=== PATIENT | female | born 1940 | race Caucasian/White ===

== ENCOUNTER → 2024-03-04 07:59 | Outpatient (CLI) | payer OTHER, SELFPAY ==
[2024-03-04 09:00] LABS: Add Manual Diff / Slide Review NO; Basophils Absolute Auto 100 /uL (0-100); Basophils Percent Auto 1.1 % (0-2); Eosinophils Absolute Auto 200 /uL (0-450); Eosinophils Percent Auto 3.7 % (2-4); Hematocrit 36.9 % (36-46); Lymphocytes Absolute Auto 1200 /uL (1100-4500); Lymphocytes Percent Auto 23.1 % (25-40); Mean Corpuscular HGB Conc 32.5 % (30-36); Mean Corpuscular Hemoglobin 26.9 PG (26-34); Mean Corpuscular Volume 82.5 fL (80-100); Monocytes Absolute Auto 400 /uL (0-900); Monocytes Percent Auto 8.3 % (3-14); Neutrophils Absolute Auto 3300 /uL (1500-7000); Neutrophils Percent Auto 63.8 % (50-75); Platelet Count 330 X10^3/uL (150-400); Red Blood Cell Count 4.48 X10^6/uL (4.0-5.2); Red Cell Distribution Width 14.4 % (11.6-14.8); White Blood Cell Count 5.2 X10^3/uL (4.5-11.0)
[2024-03-04 09:05] LABS: Hemoglobin A1C% w Est Avg Glu 6.4 % (4.0-6.0)
[2024-03-04 09:28] LABS: Alanine Aminotransferase 12 IU/L (<35); Albumin 4.3 g/dL (3.5-5.0); Albumin Globulin Ratio 1.7 (1.0-2.8); Alkaline Phosphatase 66 U/L (38-126); Aspartate Aminotransferase 16 IU/L (14-36); BUN Creatinine Ratio 19.7 (6-22); Bilirubin Total 0.6 mg/dL (0.2-1.3); Blood Urea Nitrogen 15 mg/dL (7-17); Calcium 9.4 mg/dL (8.4-10.2); Carbon Dioxide 27 mmol/L (22-32); Chloride 106 mmol/L (98-107); Cholesterol 151 mg/dL (140-199); Estimated Glomerular Filt Rate > 60 mL/min (>60); Globulin 2.6 g/dL (1.7-4.1); Glucose 120 mg/dL (80-110); HDL Cholesterol 74 mg/dL (40-60); HEMOLYSIS < 15 (0-50); LDL Cholesterol Calculated 53 mg/dL (<100); Potassium 4.1 mmol/L (3.4-5.1); Sodium 139 mmol/L (137-145); Total Protein 6.9 g/dL (6.3-8.2); Triglycerides 119 mg/dL (35-150)
[2024-03-04 09:47] LABS: TSH w/ Reflex to FT4 2.17 uIU/mL (0.47-4.68)
== END ==
PROVIDERS: Family Medicine; Family Provider Family Medicine; PCP Family Medicine; Referring Provider Orthopaedic Surgery Foot and Ankle Surgery; Visit Provider Orthopaedic Surgery Foot and Ankle Surgery
DX: Z01.818 Encounter for other preprocedural examination (principal); R73.9 Hyperglycemia, unspecified; E78.5 Hyperlipidemia, unspecified; I48.0 Paroxysmal atrial fibrillation; Z01.812 Encounter for preprocedural laboratory examination; E03.9 Hypothyroidism, unspecified; F32.9 Major depressive disorder, single episode, unspecified; R73.03 Prediabetes
CPT/HCPCS: 36415; 80053; 80061; 83036; 84443; 85025; 93005; 93010

== ENCOUNTER 2024-03-31 07:17 | Day surgery (SDC) | payer OTHER, SELFPAY ==
[2024-03-23 12:50] VITALS: BMI 24.0
[2024-03-31] VITALS (16 sets, daily range): BP systolic 135–165; BP diastolic 58–77; PULSE 66–75; RESP 12–17; TEMP 36.3–36.9; O2SAT 94–97; BMI 24.0
--- NOTE | 2024-03-31 06:00 | DI.RAD.S_ITS ---
PROCEDURE: XR KNEE RT 1TO2V INDICATIONS: TKA TECHNIQUE: 2 view(s) of the knee acquired. COMPARISON: None. FINDINGS: Bones: Patient is status post knee joint arthroplasty. Hardware components are in expected positions. Visualized bony structures are intact. Soft tissues: Overlying postoperative changes are noted. IMPRESSION: Expected post-operative appearance of a knee arthroplasty. Dictated by: Dax Mcduffie M.D. on 03/31/2024 at 11:50 Approved by: Dax Mcduffie M.D. on 03/31/2024 at 11:50
[2024-03-31] MEDS: ACETAMINOPHEN 325 MG TABLET 975 MG PO (07:57)
[2024-03-31] MEDS: CELECOXIB 200 MG CAPSULE 400 MG PO (07:58)
[2024-03-31] MEDS: LACTATED RINGERS 1,000 ML 42 ML IV ×2 (07:58→09:47)
--- NOTE | 2024-03-31 08:29 | PM.PREOP ---
Pre-operative Note Interval Note History & Physical reviewed/Exam performed by Physician: Yes Changes to H&P: No
--- NOTE | 2024-03-31 08:53 | P.OP_ITS ---
Operative Date/Time/Diagnoses Date of procedure: 03/31/24 Time of procedure: 09:00 Pre-op diagnosis: Right knee arthritis M17.11 Post-op diagnosis: same Procedure & Clinicians Procedure: Right total knee replacement CPT code 59156 Robotic assistance surgery [id number] Computer navigation [id number] Same procedure as scheduled: Yes Indications: The patient has significant pain associated with osteoarthritis of the right knee. It is associated with morning stiffness. Pain interferes with daily normal function including ambulation standing and any activities that are weight-bearing. It interferes with sleep. There is crepitation with range of motion. There is marked joint line tenderness. X-rays show significant levels of osteoarthritis. Double attempted previous conservative treatment has been rendered. The patient has failed exercise program, medications and previous injections. Patient is indicated for total knee arthroplasty. The risks and benefits of the procedure have been discussed with the patient and given the opportunity to ask questions. The risks of surgery include but are not limited to infection, malunion, nonunion, persistence of pain, damage to nerves and blood vessels, posttraumatic arthritis, DVT, PE, cardiopulmonary complications and . The patient expressed a thorough understanding of the risks and benefits of surgery and has elected to proceed. Consent was signed. During the operation, the services of a physician assistant professor of german were medically indicated and necessary to provide the exposure of the operative site for the surgical procedure and to maintain the limb in a proper position to carry out the operation safely and efficiently. Without a qualified residential assistant being present this would extended the operative procedure and made the procedure technically more difficult to perform. Surgeon: Domenica Wei Environmental Associate: Alexis Al Anesthesia Type: Spinal, Peripheral nerve block and Local Operative Notes Findings: Varus knee arthritis, right knee Closure Type: primary Prosthetic devices, grafts, tissues, transplants, or devices: Desai and Nephew journey 2 bCS Femur cobalt chromium size 6 right Tibia right size 6 Patella 35 x 7.5 Poly 11 mm Estimated Blood Loss (mL): 100 Blood products transfused: none Tourniquet time (min): 84 Procedure in detail: Patient was seen in the preoperative area where the patient and site of surgery were identified in the operative knee was marked informed consent confirmed. This was the right knee. Patient received the appropriate preoperative antibiotics this was 2 g of Ancef. And other preoperative medications and was taken to the operating room placed on operating table in the supine position. Spinal anesthetic were administered. The operative extremity was then prepped and draped in the standard sterile fashion with a nonsterile tourniquet high on the thigh. Patient was placed on the green foam bolsters. A lateral post was placed at the level of the proximal thigh /trochanter area as a lateral post. Formal time-out procedure was performed confirming the patient's side and site of surgery and administration of appropriate preoperative antibiotics and implants were in the room accounted for. All were in agreement. Patient received a preoperative dose of tranexamic acid and then a 2nd dose at tourniquet release Patient was prepped and draped in the standard sterile fashion and the foot was placed into the leg walton. This was taken into high flexion and the incision was marked out over the anterior knee to the level of the medial tubercle tubercle. The Esmarch was then used for exsanguination and the tourniquet was inflated to 250 mmHg. Was made through the skin and subcutaneous tissue in high flexion this was then brought down into 30? of flexion for the medial parapatellar arthrotomy. A marker pen was used to ranulfo the arthrotomy site for later repair. Joint fluid was evacuated. The anterior osteophytes and soft tissues were removed. Routine medial release was initially made along the medial proximal tibia with Bovie. The patella was 1st cut using the saw sized and prepped and then subluxed throughout the case and protected. The leg was then taken into extension and the patella was everted and the patella was cut to accommodate the patellar button. This was sized to a 35 mm button for a 7.5 mm thickness to recreate the original dimensions of the patella. Poly was removed and the protector replaced and the patella was subluxed and the knee was taken back up into flexion and attention was returned to the femur. Then the rotational landmarks of Whitesides line and the trans epicondylar axis were marked on the femur with electrocautery. ACL and PCL were released. Then the Cori robotic pins were placed into the femur and tibia and the race set up. Landmarks were established and the robotic planning was commenced. Plan was developed and improved and adjusted as necessary to create a balanced knee. Initial alignment was indicated at 4? of varus. Correction was planned to 0? of varus. Balance cuts were planned for approximately 2 mm in flexion and extension. Once the plan was satisfactory, the bur was used to remove the distal femur. Then attention was turned to the tibia and the tibial cut was made in accordance with the robotic planning. This was checked for accuracy. And the leg alignment was checked with the standard extension block and extension achieving the plan 0 degree alignment. Then attention was returned to the femur and the 5 in 1 cutting block was applied complete the femur cuts. The trials were placed. And the femoral notch was cut a standard fashion using Reamer then slap hammer. The knee was trialed and the checked. A 10 and then an 11 mm poly trial were selected. There is slight but tolerable medial laxity. Range of motion was taken using the robotic guidance Knee was balanced in flexion extension was then 1-2 mm. An achieved alignment of 0?. Range of motion 0-135 degrees was obtained. The rotation femoral trial was marked Bovie on the bone and checked with a long jose eduardo. Tibia was sized to a size 6. The tibia was then finished with a drill and flange cut and then The trial implants were removed. Then in extension the posterior capsule was injected with a mixture of 40 mL of 0.25% Marcaine and 20 mL of Exparel care to avoid excessive injection posterior laterally. The remainder of this was saved for the capsule and subcutaneous tissue and placed during cement curing. The wound and bone was irrigated with pulsatile lavage. This was then dried with a sponge. The components were verified and opened and the cement was mixed. Cement was applied to the components and then to the bone then the tibia was cemented in place 1st followed by the femur then the patella. Excess cement was removed. With care looking around the back of the knee. Remainder of the injection was injected around the capsule. trial poly was placed back in the leg was placed into extension for the patellar cementing. After this was cured approximately 15 minutes later and the dilute Betadine solution was placed for at least 3 minutes in the wound this was then irrigated out and the final poly was placed. This was a 11 mm poly. The tourniquet was released hemostasis was achieved. Final 1g of tranexamic acid was given IV at the time of tourniquet release. The capsule was closed with 1. Ethibond suture. Followed by a running Quill stitch. Subcutaneous layer was closed with 3-0 Vicryl suture. Skin was closed with a running V lock suture Stratafix Monocryl type suture and Dermabond. An zachary dressing was placed . An Jitendra wrap was applied. Anesthetic was terminated the patient was woken from anesthesia and taken to recovery room in good condition. There no immediate complications from this procedure. The patient will be maintained on a standard total knee replacement protocol with weight-bearing as tolerated. Complications: none Post-operative Condition: stable Disposition: PACU Plan for aftercare: Standard total knee postoperative instructions. Weightbear as tolerated. Commence range of motion immediately. Zachary dressing. Patient will resume Eliquis on postoperative day 1. Follow up in Orthopedic Clinic as scheduled in 10-14 days.
--- NOTE | 2024-03-31 08:54 | SUR.PREOP ---
Time out 0838 Block start time 0839 . Monitoring initiated and maintained throughout procedure. Oxygen and medications given by anesthesiologist . Patient remained stable throughout procedure, no adverse reactions noted. Block end time 0844
[2024-03-31] MEDS: TRANEXAMIC ACID 1,000 MG VIAL 1000 MG INJ ×2 (09:00→10:44)
[2024-03-31] MEDS: CEFAZOLIN 2 GM/100 ML PREMIX 100 ML IV ×2 (09:05→16:49)
--- NOTE | 2024-03-31 09:20 | SUR.OPER ---
Supine on padded OR bed. Pillow under head, arms secured on padded armboards <90 degree abduction. Safety belt across torso. Non-operative leg secured with tape over blanket over lower leg. Operative leg secured in DeMayo positioner. Foam padded brace at thigh of operative leg.
[2024-03-31] MEDS: BUPIVACAINE 0.25% (PF) 60 ML, EPINEPHrine 0.3 MG INJ (09:28)
[2024-03-31] MEDS: BUPIVACAINE LIPOSOME 266 MG/20 ML VIAL INJ (10:15)
[2024-03-31] MEDS: OXYCODONE IR 5 MG TABLET PO ×2 (11:39→12:10)
[2024-03-31] MEDS: ONDANSETRON 4 MG/2 ML INJ IV (11:39)
[2024-03-31] MEDS: KETOROLAC 30 MG/ML VIAL 15 MG IV (11:49)
--- NOTE | 2024-03-31 13:10 | PT.IIE ---
Current Diagnoses Unilateral primary osteoarthritis, right knee (03/31/24) Surgery Performed Operation Date: 03/31/24 08:45 Actual Procedures p Total Knee Arthroplasty - Robot(Right) - Domenica Wei MD Surgical History (Last Updated 03/23/24 @ 13:18 by Heidi Ramos, RN) H/O cardiac radiofrequency ablation H/O: hysterectomy Hx of bilateral cataract extraction Hx of left mastectomy Hx of right mastectomy Hx of tonsillectomy Medical History (Last Updated 03/23/24 @ 13:58 by Heidi Ramos RN) Afib AV junctional bradycardia Breast cancer, left (~2011) Breast cancer, right Easy bruising HLD (hyperlipidemia) HTN (hypertension) Hypothyroid Osteoarthritis Pacemaker (11/07/22) PAF (paroxysmal atrial fibrillation) Physical Therapy Inpatient Evaluation/Re-Eval M1 PT/OT-IP Prior Functional Status Start: 03/31/24 15:59 Freq: NEEDED Status: Active Protocol: Document 03/31/24 13:10 AB (Rec: 03/31/24 16:25 AB [id number]) Medical Review Prior Functional Status Medical History Reviewed Yes Communication able to make needs known Mobility and Gait pt stated that she was independent with all mobilities and ambulation without AD; pt still able to drive prior to sx Social History Household Members none Living Arrangements House Number of Floors (Floors) One Floor Number of Stairs To Enter/Railing? pt lives in a senior housing community 2 steps L rail ascending to enter the house Home Environment Standard Height Toilet,Walk in Shower Home Equipment Straight Cane,Raised Toilet Seat w/Armrests,Grab Bars In Shower Additional Social History Comment pt's friend plans to stay with pt to assist her until Friday but may stay longer if needed pt has a standard walker M2 PT-IP Current Condition Start: 03/31/24 15:59 Freq: NEEDED Status: Active Protocol: Document 03/31/24 13:10 AB (Rec: 03/31/24 16:25 AB [id number]) Physical Therapy Current Condition Current Condition Evaluation Date 03/31/24 Treatment Diagnosis s/p R TKA; difficulty in walking Onset Date 03/31/24 M3 PT-IP Subjective Start: 03/31/24 15:59 Freq: NEEDED Status: Active Protocol: Document 03/31/24 13:10 AB (Rec: 03/31/24 16:25 AB [id number]) Subjective Physical Therapy Visit Type Type Initial Evaluation Visit Start Time 13:10 Visit Stop Time 14:33 Number of TELECOMMUNICATIONS SUPPORT Visits 0 Physical Therapy Visit Comments Patient Comments agreeable to do PT Therapy Pain Assessment Pain When Pain Assessed At Rest Pain Present Pain Present Pain Reported Location right knee Intensity 5 Scale Used Numeric (0 - 10) Pain Management Techniques Apply Cold,Distraction, Modification of Treatment,Re- positioning,Timing of Activity with Medications M4 PT-IP Mobility and Gait Start: 03/31/24 15:59 Freq: NEEDED Status: Active Protocol: Document 03/31/24 13:10 AB (Rec: 03/31/24 16:25 AB [id number]) PT-Bed Mobility Assessment Supine to Sit Supine to Sit Standby Assistance Sit to Supine Sit to Supine Standby Assistance PT-Transfer Assessment Sit to and From Stand Sit to and from Stand Contact Guard Assistance,1 Person Assistance,Use of Upper Extremities Equipment Transfer Assistive Device Gait Belt,Front Wheeled Walker Orthotic/Prosthetic Devices or Brace: No Transfers Transfer Destination Bed Comments Mobility Comments PACU pt referred for PT for possible d/c today. pt supine in bed and agreeable to do PT. pt's friend with pt. obtained PLOF and home set up from pt and friend. pt has a standard walker. pt stated that she did not have pre-op PT . informed pt regarding DME : FWW, shower chair. pt is set up for outpt PT. post-op folder provided and reviewed with pt. educated pt regarding HEP. BP in supine: 137/70. pt completed supine to sit SBA. able to sit on EOB SBA. BP in sittin/68. pt completed sit to stand CGA and ambulated using FWW ~ 20 ft CGA to min A and max cues for R quads activation. presents with (+) R knee slight buckling. pt sat on EOB. educated on LE stability in standing and walking. Caregiver training initiated and educated caregiver on how to use safety belt and how to assist pt. pt's friend was able to put safety belt on after a few cues/instructions. friend was able to assist pt with sit to stand on EOB and ambulated pt ~ 20 to other side of the bed using FWW CGA and. caregiver was able to cue pt. pt sat on EOB. educated pt regarding stair climbing using L rail ascending + SPC. PT assisted pt with stair climbing and pt completed 1 step using L rail ascending + SPC requiring mod A and max cues. pt afterwards stated that she if feeling really tired and cannot do anymore activities. pt sat on EOB. BP checked: 127/70. pt scooted towards HOB and completed sit to supine SBA. pt's friend stated that she is worried about pt going home at this time. PT informed pt that she needed assistance with stair climbing and caregiver training was not conducted for stair climbing since pt was unable to tolerate further activities. pt also has has a drop in BP from 158/68 to 127/70. Nurse informed. Talked with pt and friend regarding caregiver training for tomorrow and pt's friend will come in at 9 am for training. Pt also want FWW dispensed to her from the hospital. informed PACU nurse to get doctor's order for FWW. call light placed with pt and table as well. BP at end of PT session: 146/70. Left pt in PACU with pt's friend. Gait Assessment Gait Gait Assistance Required: Contact Guard Assist,Minimum Assistance Distance (Feet) 20 Able to Maintain Weight Bearing Status Yes During Gait Assistive Devices Assistive Device Gait Belt,Front Wheeled Walker Orthotic/Prosthetic Devices or Brace: No Gait Deviations General Gait Pattern Antalgic,Decreased Stride Length,Decreased Feet Clearance,Step-to Gait Factors Limiting Gait Function Factors Limiting Gait Function Decreased Activity Tolerance, Decreased Strength,Difficulty Following Directions,Limited Range of Motion,Pain,Poor Balance,Poor Safety Awareness Stair Climbing Assessment Evaluation Level of Assist On Stairs Moderate Assistance,1 Person Assistance Devices Stair Climbing Assistive Devices Straight Cane,Left Railing Technique/Endurance Stair Climbing Direction Ascend and Descend Stair Climbing Technique Step to Step Number of Steps Climbed 1 Query Text: Stair Climbing Set # Repetitions (reps) 1 PT-Balance Assessment Sitting Balance and Reactions Static Sitting Balance Ability Good Dynamic Sitting Balance Ability Good Standing Balance and Reactions Static Standing Balance Ability Fair Dynamic Standing Balance Ability Fair Device Used FWW M5 PT-IP Objective Assessments Start: 03/31/24 15:59 Freq: NEEDED Status: Active Protocol: Document 03/31/24 13:10 AB (Rec: 03/31/24 16:25 AB [id number]) Orientation Orientation/Cognition Level of Alertness Alert Orientation Name,Place,Situation Language Function Ability Hard of Hearing Safety Awareness Decreased Safety Awareness Memory Description No Deficits Noted Gross Range of Motion Lower Extremity ROM Impairments R knee flexion: ~ 70 deg R knee extension: ~ 10 deg less to 0 Strength Lower Extremity Strength Assessment Right Impaired Hip 4-/5 Knee 3+/5 Coordination Assessment Gross Coordination Gross Coordination WNL M6 PT-IP Treatment Start: 03/31/24 15:59 Freq: NEEDED Status: Active Protocol: Document 03/31/24 13:10 AB (Rec: 03/31/24 16:25 AB [id number]) Physical Therapy Treatment Exercises Exercises Heel Slides Education Education Provided Precautions,Weight Bearing Status,Post-Op Packet,Safety M7 PT-IP Assessment and Plan Start: 03/31/24 15:59 Freq: NEEDED Status: Active Protocol: Document 03/31/24 13:10 AB (Rec: 03/31/24 16:25 AB [id number]) PT Summary Assessment and Plan Potential Rehabilitation Potential Fair Status of Condition at Evaluation Evolving Summary Impairments Pain,ROM,Strength,Balance, Coordination,Sensation,Tone, Cognition,Bed Mobility, Transfers,Gait,Activity Tolerance Progress Towards Goals Slow Progress due to Activity Tolerance,Slow Progress - Other Assessment Summary pt is an 83 y/o F s/p R TKA POD 0. pt is WBAT on RLE. Pt is still on PACU floor and plans to go home today. pt requiring CGA to min A with mobility and caregiver training was initiated. caregiver training not completed for stair climbing due to pt's decrease activity tolerance with c/o fatigue and also has a drop in BP from 158/68 to 127/70. pt unable to do further activities and now plans to stay in the hospital for tonight. caregiver training set up for tomorrow at 9am. Pt also requested for a FWW to be dispensed to her. informed PACU nurse to obtain doctor's order for FWW and PT will dispense to pt on d/c day. Goals Bed Mobility Goal Independent Transfer Goal Independent,Front Wheeled Walker Gait Goal Independent,Front Wheel Walker Gait Distance 200 Other Goals improve transfers and ambulation using LRAD ~ 300 ft mod I up/down 2 steps L rail ascending + SPC CGA Days to Meet Goals 5 Frequency of Treatment Frequency Of Treatment Twice a Day Treatment Plan Physical Therapy Treatment Plan Bed Mobility Training,Transfer Training,Gait Training, Therapeutic Exercise,Balance Retraining,Post Op Education, Discharge Planning,Hot or Cold Pack,Neuromuscular Re-ed, Coordination Retraining,Manual Therapy Other Recommendations and Next Treatment Caregiver training 04/01/24 @ [facility] 9 am Weight Bearing Status Weight Bearing Status Weight Bear as Tolerated Allowed Weight Bearing Amount (enter % RLE WBAT or #) (%) Recommendations To Nursing Amount of Assist Needed 1 Person Assist Discharge Recommendations PT Discharge Recommendations Home with Assistance, Outpatient PT Equipment Needed for Home Before FWW Discharge Transportation Needs at Discharge Private Vehicle
[2024-03-31] MEDS: LACTATED RINGERS 1,000 ML 100 ML IV (16:49)
[2024-03-31] MEDS: ACETAMINOPHEN 325 MG TABLET 650 MG PO ×2 (16:50→20:48)
[2024-03-31] MEDS: SENNOSIDES 8.6 MG TABLET 17.2 MG PO (20:47)
[2024-03-31] MEDS: METOPROLOL ER 25 MG TABLET PO (20:47)
[2024-03-31] MEDS: ATORVASTATIN 20 MG TABLET 10 MG PO (20:49)
[2024-04-01] MEDS: CEFAZOLIN 2 GM/100 ML PREMIX 100 ML IV (01:52)
[2024-04-01] MEDS: ACETAMINOPHEN 325 MG TABLET 650 MG PO (04:46)
[2024-04-01 05:09] VITALS: BP 144/56; PULSE 66; RESP 16; TEMP 36.2; O2SAT 95
[2024-04-01 06:15] LABS: Hematocrit 33.5 % (36-46); Hemoglobin 10.9 g/dL (12.0-16.0)
[2024-04-01] MEDS: LEVOTHYROXINE 75 MCG TABLET PO (06:44)
--- NOTE | 2024-04-01 06:49 | P.DS_ITS ---
History of Present Illness History of Present Illness Date Patient Seen: 04/01/24 Time Patient Seen: 06:49 Chief complaint: Right TKA *OPB* Narrative: Operative Date/Time/Diagnoses Date of procedure: 03/31/24 Time of procedure: 09:00 Pre-op diagnosis: Right knee arthritis M17.11 Post-op diagnosis: same Procedure & Clinicians Procedure: Right total knee replacement CPT code 25485 Robotic assistance surgery [id number] Computer navigation [id number] Same procedure as scheduled: Yes Indications: The patient has significant pain associated with osteoarthritis of the right knee. It is associated with morning stiffness. Pain interferes with daily normal function including ambulation standing and any activities that are weight-bearing. It interferes with sleep. There is crepitation with range of motion. There is marked joint line tenderness. X-rays show significant levels of osteoarthritis. Double attempted previous conservative treatment has been rendered. The patient has failed exercise program, medications and previous injections. Patient is indicated for total knee arthroplasty. The risks and benefits of the procedure have been discussed with the patient and given the opportunity to ask questions. The risks of surgery include but are not limited to infection, malunion, nonunion, persistence of pain, damage to nerves and blood vessels, posttraumatic arthritis, DVT, PE, cardiopulmonary complications and . The patient expressed a thorough understanding of the risks and benefits of surgery and has elected to proceed. Consent was signed. During the operation, the services of a physician surgical scrub technologist were medically indicated and necessary to provide the exposure of the operative site for the surgical procedure and to maintain the limb in a proper position to carry out the operation safely and efficiently. Without a qualified executive chef assistant being present this would extended the operative procedure and made the procedure technically more difficult to perform. Surgeon: Domenica Wei Dermatology Nurse: Alexis Al Anesthesia Type: Spinal, Peripheral nerve block and Local Operative Notes Findings: Varus knee arthritis, right knee Closure Type: primary Prosthetic devices, grafts, tissues, transplants, or devices: Desai and Nephew journey 2 bCS Femur cobalt chromium size 6 right Tibia right size 6 Patella 35 x 7.5 Poly 11 mm Estimated Blood Loss (mL): 100 Blood products transfused: none Tourniquet time (min): 84 Discharge Providers Provider Discharge Date: 04/01/24 Primary care physician: Garry Huerta MD Consults: 03/31/24 08:45 Consult to Physical Therapy Evaluate & Treat Comment: postop TKA same day surgery Physician Instructions: Evaluate and Treat 03/31/24 16:00 Consult to Discharge Planning Routine Comment: Consult to Occupational Therapy Evaluate & Treat Comment: Physician Instructions: Evaluate and treat Consult to Physical Therapy Evaluate & Treat Comment: Physician Instructions: postop TKA protocol Discharge provider: Niru Rendon PA-C Summary Hospital Course Discharge Diagnosis: Right knee arthritis, s/p right total knee arthroplasty Hospital Course: Ms Lance'mati hospital course was unremarkable. On the morning of POD# 1, she was feeling well and wanted to go home. She was eating and voiding without difficulty and her pain was well-controlled on oral medication. She was evaluated by PT and they felt she was safe for discharge with family. Exam Vital Signs (past 8 hours): - 03/31/24 23:25 04/01/24 05:09 Temperature 97.6 F 97.2 F L Pulse Rate 72 66 Respiratory Rate 16 16 Blood Pressure 144/69 H 144/56 H Pulse Oximetry 94 95 Oxygen Flow Rate 0 0 Oxygen Delivery Method Room Air Oxygen Flow Rate 0 Narrative Exam Narrative: 4/5 strength in hip flexors, quadriceps, hamstrings; 5/5 DF, PF, EHL on right. Sensation to light touch intact throughout RLE; calf soft and compressible. JITENDRA over YUNG CDI; YUNG functioning. Objective Labs 04/01/24 06:03 Labs: Laboratory Results - last 24 hr 04/01/24 06:03 Hgb 10.9 L Hct 33.5 L PFSH Medical History (Updated 03/23/24 @ 13:58 by Heidi Ramos RN) AV junctional bradycardia PAF (paroxysmal atrial fibrillation) Easy bruising Osteoarthritis Breast cancer, left (~2011) Breast cancer, right Afib HLD (hyperlipidemia) HTN (hypertension) Hypothyroid Pacemaker (11/07/22) Surgical History (Updated 03/23/24 @ 13:18 by Heidi Ramos RN) Hx of tonsillectomy Hx of right mastectomy Hx of left mastectomy H/O: hysterectomy H/O cardiac radiofrequency ablation Hx of bilateral cataract extraction Social History household members: none Smoking Status: Never smoker alcohol intake: current Discharge Assessment & Plan Assessment and Plan Assessment: Right knee arthritis, s/p right total knee arthroplasty Plan of Treatment: Discharge home, multimodal pain control, outpt PT, Eliquis as per preop for VTE prophylaxis, f/u in office in 2 weeks as scheduled. Discharge Plan Discharge Plan Patient Disposition: Home Nursing Discharge Comment: You received Toradol (like Ibuprofen) at 1145, next dose of Ibuprofen at 545pm. You received Tylenol at 0800, next dose at 2 pm. You received Oxycodone at 1140, next dose at 240pm. Please take stool softeners while on narcotic pain medications. Discharge orders & Medications Discharge Orders: Discharge (Order); Ordered 04/01/24 Ordered By: Niru Rendon Prescriptions: New oxycodone 5 mg tablet 5 mg PO Q4H PRN (Reason: pain) Qty: 40 0RF Rx Instructions: Postop exempt Continued levothyroxine [Synthroid] 75 MCG tablet 75 mcg PO DAILY Qty: 0 simvastatin 20 MG tablet 20 mg PO BEDTIME Qty: 0 calcium carbonate-vitamin D3 [Calcium 600 + D(3)] 600 mg-10 mcg (400 unit) Tablet 1 tab PO DAILY Qty: 0 amlodipine 5 mg Tablet 5 mg PO DAILY ibuprofen 200 mg Tablet 400 mg PO DAILY PRN (Reason: Pain) metoprolol succinate 25 mg Tablet Extended Release 24 Hr 25 mg PO BID losartan 100 mg Tablet 100 mg PO DAILY naproxen sodium [Aleve] 220 mg Capsule 440 mg PO DAILY PRN (Reason: Pain) apixaban 5 mg Tablet 5 mg PO BID magnesium oxide 400 mg magnesium Tablet 400 mg PO DAILY Follow up/Referrals: Mirza Huerta MD [Primary Care Provider] - Domenica Wei MD [Physician] - 04/14/24 10:40 am (Follow up w/ Carlos Jerez PA-C, at [facility] office in [place].) Diet/Activity/Treatments Diet: Diet as Tolerated Other treatments: Dressing/Wound care: -Remove the Jitendra wrap 48 hours after surgery. -Keep yung dressing in place until postoperative follow-up office visit. -you may see some drainage on the bandage, this is ok. If it is leaking or saturated, then the dressing can be changed to clean gauze or a clean surgical dressing from a pharmacy or reinforced with additional gauze and paper tape or dressings over the top. Otherwise, just keep dressing in place until follow up. The battery pack for the dressing work for 7 days. After which time it will stop and you can cut the hose off but keep the bandage in place like a regular bandage. -Okay to shower. Keep wound out of direct water stream. No soaking or submerging until all the scabs fall off (approximately 6 weeks). -Please call the office if dressing becomes significantly wet, soiled, or saturated. Activities: -Weight-bearing as tolerated. Use front wheeled walker, and progress to cane when safe. -Continue with home exercises as directed by your physical therapist. -Elevate ?toes above the nose if you have significant swelling in your lower leg. (A wedge pillow is easiest.) -Ice your incision as needed for pain/inflammation/swelling. Protect your skin with a folded pillowcase. Follow-up: -Follow-up with your surgeon or PA in the office in 10-14 days after surgery. -Follow-up with your surgeon 6 weeks postoperatively. Call the office if you have chest pain, shortness of breath, significant swelling that will not resolve with elevating, fever over 101?, significantly worsening pain. [facility]: [phone] You have been discharged with medications. These have already been sent to your pharmacy. Pain include pain medications: Oxycodone take 5 mg orally every 4 hours as needed for pain. If your pain is more severe you may take up to 2 or a maximum 3 pills (15 mg) every 4 hours for pain. Take the smallest dose necessary. Narcotic medication can make you feel constipated. You can get kjtm-fgc-jyqxuit stool softener such as docusate sodium-Colace at a pharmacy to help with this. You also have prescriptions for ibuprofen 800 mg take this 3 times a day for least the 1st 10 days after surgery to help with pain control. And acetaminophen (Tylenol) take 500-1000 mg 3 times a day for pain control. You also have a prescription for Zofran (ondansetron) this is a strong anti nausea medication that can be taken up to every 8 hours as needed for nausea You will restart your Eliquis at your regular dose on the morning after surgery. Skin/Wound/Dressing Care Report to your healthcare provider any signs of infection, such as:: chills, fever, night sweats, increased pain, unusual drainage and unusual redness Visit Report/Discharge Packet Instructions: DI for Knee Replacement Stand Alone Forms: Patient Portal/API, Surgery Discharge Discharge Data Primary Care Provider: Mirza Huerta Attending Provider: Domenica Wei VTE Deep Vein Thrombosis/Pulmonary Embolism Present on Admission: No
[2024-04-01] MEDS: AMLODIPINE 5 MG TABLET PO (08:25)
[2024-04-01] MEDS: OXYCODONE IR 5 MG TABLET PO (08:25)
[2024-04-01 08:28] VITALS: BP 144/51; PULSE 67
[2024-04-01] MEDS: LOSARTAN 50 MG TABLET 100 MG PO (08:28)
[2024-04-01] MEDS: CALCIUM CARBONATE 500 MG TAB PO (08:28)
[2024-04-01] MEDS: METOPROLOL ER 25 MG TABLET PO (08:28)
[2024-04-01] MEDS: CHOLECALCIFEROL (VITAMIN D3) 400 UNIT TABLET PO (08:28)
[2024-04-01] MEDS: APIXABAN 5 MG TABLET PO (08:28)
[2024-04-01] MEDS: MAGNESIUM OXIDE 400 MG TABLET PO (08:29)
[2024-04-01 09:00] VITALS: BP 144/51; PULSE 66; RESP 16; TEMP 36.1; O2SAT 94
--- NOTE | 2024-04-01 09:00 | PT.IPTN ---
Current Diagnoses Unilateral primary osteoarthritis, right knee (03/31/24) Surgery Performed Operation Date: 03/31/24 08:45 Actual Procedures p Total Knee Arthroplasty - Robot(Right) - Domenica Wei MD Physical Therapy Treatment Note M2 PT-IP Current Condition Start: 03/31/24 15:59 Freq: NEEDED Status: Active Protocol: Document 03/31/24 13:10 AB (Rec: 03/31/24 16:25 AB [id number]) Physical Therapy Current Condition Current Condition Evaluation Date 03/31/24 Treatment Diagnosis s/p R TKA; difficulty in walking Onset Date 03/31/24 M3 PT-IP Subjective Start: 03/31/24 15:59 Freq: NEEDED Status: Active Protocol: Document 04/01/24 09:28 TS (Rec: 04/01/24 09:54 TS [id number]) Subjective Physical Therapy Visit Type Type Treatment Note Visit Start Time 09:00 Visit Stop Time 09:27 Number of [employer] Visits 1 Physical Therapy Visit Comments Patient Comments Pt found resting in bed, friend in room, pt reports pain is 3/10, pt is agreeable to PT. Therapy Pain Assessment Pain When Pain Assessed At Rest Pain Present Pain Present Pain Reported M4 PT-IP Mobility and Gait Start: 03/31/24 15:59 Freq: NEEDED Status: Active Protocol: Document 04/01/24 09:28 TS (Rec: 04/01/24 09:54 TS [id number]) PT-Bed Mobility Assessment Supine to Sit Supine to Sit Standby Assistance Scooting Scooting to Edge of Bed Standby Assistance PT-Transfer Assessment Sit to and From Stand Sit to and from Stand Standby Assistance Equipment Transfer Assistive Device Gait Belt,Front Wheeled Walker Orthotic/Prosthetic Devices or Brace: No Comments Mobility Comments Supine to sit SBA with HOB elevated, pt uses BUE support to assist RLE to EOB. Caregiver donned gait belt prior to STS. STS from bed SBA with FWW. She ambulated ~100' SBA with FWW and step to gait. She performed stairs CGA from caregiver x3 with with single rail and use of SPC. Pt ambulated back to room, was left in chair. Pt was educated on frequency and intensity of post-ex. RN was notified of pt's desire to leave [facility]. Gait Assessment Gait Gait Assistance Required: Standby Assistance Distance (Feet) 100 Able to Maintain Weight Bearing Status Yes During Gait Assistive Devices Assistive Device Gait Belt,Front Wheeled Walker Orthotic/Prosthetic Devices or Brace: No Gait Deviations General Gait Pattern Antalgic,Decreased Stride Length,Decreased Feet Clearance,Step-to Gait Factors Limiting Gait Function Factors Limiting Gait Function Decreased Activity Tolerance, Decreased Strength,Difficulty Following Directions,Limited Range of Motion,Pain,Poor Balance,Poor Safety Awareness Comments Gait Comments See mobility comments Stair Climbing Assessment Evaluation Level of Assist On Stairs Contact Guard Assistance,1 Person Assistance Devices Stair Climbing Assistive Devices Straight Cane,Left Railing Technique/Endurance Stair Climbing Direction Ascend and Descend Stair Climbing Technique Step to Step Number of Steps Climbed 1 Stair Climbing Set # Repetitions (reps) 1 PT-Balance Assessment Sitting Balance and Reactions Static Sitting Balance Ability Good Dynamic Sitting Balance Ability Good Standing Balance and Reactions Static Standing Balance Ability Fair Dynamic Standing Balance Ability Fair Device Used FWW M5 PT-IP Objective Assessments Start: 03/31/24 15:59 Freq: NEEDED Status: Active Protocol: Document 03/31/24 13:10 AB (Rec: 03/31/24 16:25 AB [id number]) Orientation Orientation/Cognition Level of Alertness Alert Orientation Name,Place,Situation Language Function Ability Hard of Hearing Safety Awareness Decreased Safety Awareness Memory Description No Deficits Noted Gross Range of Motion Lower Extremity ROM Impairments R knee flexion: ~ 70 deg R knee extension: ~ 10 deg less to 0 Strength Lower Extremity Strength Assessment Right Impaired Hip 4-/5 Knee 3+/5 Coordination Assessment Gross Coordination Gross Coordination WNL M6 PT-IP Treatment Start: 03/31/24 15:59 Freq: NEEDED Status: Active Protocol: Document 04/01/24 09:28 TS (Rec: 04/01/24 09:54 TS [id number]) Physical Therapy Treatment Education Education Provided Precautions,Weight Bearing Status,Post-Op Packet,Safety M7 PT-IP Assessment and Plan Start: 03/31/24 15:59 Freq: NEEDED Status: Active Protocol: Document 04/01/24 09:28 TS (Rec: 04/01/24 09:54 TS [id number]) PT Summary Assessment and Plan Potential Rehabilitation Potential Good Summary Impairments Pain,ROM,Strength,Balance, Coordination,Sensation,Tone, Cognition,Bed Mobility, Transfers,Gait,Activity Tolerance Progress Towards Goals Progressing Toward Goals Assessment Summary Elly is making good progress with her mobility. She is SBA for all bed mobility. She improved her gait to ~100 SBA with FWW. She performed stairs x3 with single rail and use of SPC CGA . Caregiver was educated on bed mobility, gait belt, gait and stair training. PT is recommending home with assist and outpatient PT. Goals Bed Mobility Goal Independent Transfer Goal Independent,Front Wheeled Walker Gait Goal Independent,Front Wheel Walker Gait Distance 200 Other Goals improve transfers and ambulation using LRAD ~ 300 ft mod I up/down 2 steps L rail ascending + SPC CGA Days to Meet Goals 5 Frequency of Treatment Frequency Of Treatment Twice a Day Treatment Plan Physical Therapy Treatment Plan Bed Mobility Training,Transfer Training,Gait Training, Therapeutic Exercise,Balance Retraining,Post Op Education, Discharge Planning,Hot or Cold Pack,Neuromuscular Re-ed, Coordination Retraining,Manual Therapy Weight Bearing Status Weight Bearing Status Weight Bear as Tolerated Allowed Weight Bearing Amount (enter % RLE WBAT or #) (%) Recommendations To Nursing Amount of Assist Needed 1 Person Assist Discharge Recommendations PT Discharge Recommendations Home with Assistance, Outpatient PT Equipment Needed for Home Before FWW Discharge Transportation Needs at Discharge Private Vehicle
--- NOTE | 2024-04-01 09:21 | CM.DANOTE ---
Initial DCP Assessment Visit Note Reviewed EMR and team rounds for pt's medical status and updates. Went to meet with pt f/f, however she was busy working with PT. Pt resides independently in her own home [place] in [place]. She has a plan for her friend to stay with her for the next 3-days post-discharge, however the friend states that she can stay longer if needed for care assistance. Her friend will also drive her home today after working with PT. Payor: [facility] Adv Attending: Dr. Wei Pt is a 83 year-old F post-op day 1 from a R-total knee arthroplasty surgery. She has a hx of worsening knee pain that interferes with sleep, as well as limits her ability to perform ADL's, despite having tried conservative efforts such as exercise, NSAIDS. She still drives, had not needed any AD for mobility until now. PT was able to get her a FWW for pt's d/c home later this morning. Pt has recovered well postoperatively, was able to work with PT yesterday, had a slight drop in blood pressure when initially getting up to walk, however it did improve shortly after stopping to rest. No d/c needs have been identified at this time. This DCP will continue to monitor for any further evolving needs/assistance. Discharge Planning/Care Management CM Discharge Assessment Start: 04/01/24 09:17 Freq: Status: Active Protocol: Document 04/01/24 09:17 DPL (Rec: 04/01/24 09:20 DPL [id number]) Discharge Planning Assessment Assigned Pre Press Manager ALEXANDRU Almanza Advance Directives? No History Provided By Medical Record Expected Length of Stay 1 Prior Living Arrangements House Household Members none Type of transporation used prior to Drives own vehicle admit Independent with ADL's Yes Is patient alert and oriented? Yes Comment N/A Caregiver for Another No Comment No assistive device was needed prior to surgery. She does have a FWW now that she will take home with her. Patient/Family Preference OP PT Therapy Barriers to Discharge No Discharge Plan Home Community Services Physical Therapy Transportation Arrangement Friend Referrals Initiated None needed Review Status In Process Please Provide Date Initial DC 04/01/24 Assessment Was Performed Pre-Anesthesia Assessment Start: 03/23/24 12:50 Freq: Status: Active Protocol: Document 03/23/24 12:50 CAB (Rec: 03/23/24 13:58 CAB [id number]) Pre-Anesthesia Assessment Patient Information Reviewed Via Phone Assessment Assessment Completed With Patient Diagnostic Results BMP/CMP,CBC,EKG Comment Labs/EKG @ [facility] 03/04/24 Primary Care Provider Bhupinder Kwon Seen Specialist in Last 12 Months Yes Specialist Seen Drilling Fluids Specialist,Orthopedist Primary Language Azeri Jitney Driver Required No Height 172.72 cm Weight 71.668 kg Body Mass Index (BMI) 24.0 Hearing Ability Normal Visual Assist None Dentition Type Full- Upper & Lower Barriers to Learning None Hx Anesthesia Reactions No Hx Family Anesthesia Reaction No Hx Malignant Hyperthermia No Hx Blood Transfusions No Anesthesia Review Requested No Directory Clerk No alcohol intake current alcohol intake frequency a few times a week Smoking Status Never smoker Substance Use Type does not use Pain Present Pain Reported Musculoskeletal Symptoms Abnormal Gait,Difficulty Walking,Joint Pain History of Falling (Recent or History of No ) Patient is completely paralyzed or No completely immobile Mental Status Oriented to own ability Is patient on oxygen? No Does patient have DIAZ/SOB No Hx Sleep Apnea No Currently Taking a Beta Lance Yes: Metoprolol Can You Climb a Flight of Stairs Without Yes SOB Hx Chest Pain No Hx SOB No Hx Syncope or Dizziness No Anti-Coagulant Therapy Yes: Eliquis - hold 3 days prior per Cardiology Has a Drilling Fluids Specialist Yes: Last visit 10/31/[address] Delgadillo @ [facility] Hx Pacemaker/ICD Yes: Pacer form scanned and in surgery folder Pacemaker Rep Required? No Cardiac Clearance Received Yes Comment Cardiac records scanned and in surgery folder Diet Type At Home Regular Dysphagia No Gastrointestinal Symptoms None Chronic UTI No Urinary Catheter Present No Hx Urinary Self Catheterization No Diabetes No HgbA1C 6.4 Date 03/04/24 Patient No Lactating No Hx Drug Resistant Organism No Presence of External or Internal Medical Yes: Pacemaker, bilat eye IOLs Devices , right breast implant Received a COVID vaccine? Yes Received all doses? Yes Marital Status / Lives With none Current Living Arrangements Apartment/Condo Number of Floors (Floors) One Floor Support System Friend(s) Does the Patient Have Assistance After Yes: Friend will stay w/pt 03/30 Surgery -04/03/24 Patient Discharge Plan Description Return Home Comment Pt advised same day surgery per surgeon Feels Safe in Current Environment Yes Been Physically Hurt or Threatened By a No Person in Current Environment Do you have thoughts of harming yourself None or others? Are you currently considering suicide? No Do you have a plan to hurt yourself or No Plan others? Do You Have Any Spiritual Beliefs That No May Affect Your HC Choices? Do You Have Any Cultural Practices That No May Affect Your HC Choices? Who Can We Speak to About Patient's Care Family, friends Identifying Code for Release of Patient Declines to issue Information Health Care Proxy/Next of Kin Magalie Saravia (good friend) Health Care Proxy Emergency Contact Name Magalie Saravia (good friend) Emergency Contact Advance Directives? No Power of Ratings Analyst No PAC Instructions Do not shave/clip surgical site,Durable medical equipment ,Medications to take/avoid, Nasal antibiotic,No ETOH/ petroleum product on skin DOS, NPO,Pre-surgical wash,Sensory aids,Sturdy shoes/comfortable clothes,Do not bring valuables and remove jewelry
--- NOTE | 2024-04-01 09:55 | OT.IP.EVAL ---
Current Diagnoses Unilateral primary osteoarthritis, right knee (03/31/24) Surgery Performed Operation Date: 03/31/24 08:45 Actual Procedures p Total Knee Arthroplasty - Robot(Right) - Domenica Wei MD Past Medical History (Last Updated 03/23/24 @ 13:58 by Heidi Ramos, RN) Afib AV junctional bradycardia Breast cancer, left (~2011) Breast cancer, right Easy bruising HLD (hyperlipidemia) HTN (hypertension) Hypothyroid Osteoarthritis Pacemaker (11/07/22) PAF (paroxysmal atrial fibrillation) Surgical History (Last Updated 03/23/24 @ 13:18 by Heidi Ramos RN) H/O cardiac radiofrequency ablation H/O: hysterectomy Hx of bilateral cataract extraction Hx of left mastectomy Hx of right mastectomy Hx of tonsillectomy Occupational Therapy Inpatient Evaluation/Re-Eval M1 PT/OT-IP Prior Functional Status Start: 03/31/24 15:59 Freq: NEEDED Status: Active Protocol: Document 04/01/24 09:56 [facility] (Rec: 04/01/24 10:08 [facility] [id number]) Medical Review Prior Functional Status Medical History Reviewed Yes Communication able to make needs known Mobility and Gait pt stated that she was independent with all mobilities and ambulation without AD; pt still able to drive prior to sx Activities of Daily Living and IADL's Pt able to do ADL and IADL but had pain. Social History Household Members none Living Arrangements House Number of Floors (Floors) One Floor Number of Stairs To Enter/Railing? pt lives in a senior housing community 2 steps L rail ascending to enter the house Home Environment Standard Height Toilet,Walk in Shower Home Equipment Straight Cane,Raised Toilet Seat w/Armrests,Shower Seat with Backrest,Grab Bars In Shower Additional Social History Comment pt's friend plans to stay with pt to assist her until Friday but may stay longer if needed pt has a standard walker M2 OT-IP Current Condition Start: 04/01/24 09:56 Freq: Status: Active Protocol: Document 04/01/24 09:56 [facility] (Rec: 04/01/24 10:08 [facility] [id number]) Occupational Therapy Current Condition Current Condition Evaluation Date 04/01/24 Treatment Diagnosis S/P R TKA Diagnosis Onset Date 03/31/24 M3 OT- IP Subjective and Pain Start: 04/01/24 09:56 Freq: Status: Active Protocol: Document 04/01/24 09:56 [facility] (Rec: 04/01/24 10:08 [facility] [id number]) OT- Subjective Occupational Therapy Visit Type Type Initial Evaluation Visit Start Time 09:25 Visit Stop Time 09:55 Occupational Therapy Visit Comments Patient Comments Pt agreed to get dressed and able to issue the FWW to the pt. Patient/Caregiver Goals TO go home. OT Pain Assessment Pain When Pain Assessed At Rest Pain Present Pain Present Pain Reported Location right knee Intensity 3 Scale Used Numeric (0 - 10) M4 OT- IP ADL's Start: 04/01/24 09:56 Freq: Status: Active Protocol: Document 04/01/24 09:56 [facility] (Rec: 04/01/24 10:08 [facility] [id number]) OT CPR-Jrlb-Jihteoi General Evaluation Self-Feeding Ability Independent OT ADL-Grooming Comments OT Grooming Comments NOt performed. OT ADL-Oral Care Comments Oral Care Comments Not performed. OT ADL-Dressing General Eval Upper Body Dressing Ability Independent Lower Body Dressing Ability Minimal Assistance Comments OT Dressing Comments LORI to help thread slip on socks through her pants. Educated to sit for shoes/ socks needs. When standing to hold onto surfaces for her balance. Educated to leatha her RLE first and take out last. OT ADL-Toileting General Evaluation Toileting Ability Standby Assistance Comments OT Toileting Comments Educated pt to be mindful of her RLE positioning during ADL needs. Suggested to wear pads in needed so not having to hurry to the bathroom. OT ADL-Bathing Comments OT Bathing Comments Not performed. Suggested to cover the dressing during showering needs. M5 OT- IP IADL's Start: 04/01/24 09:56 Freq: Status: Active Protocol: Document 04/01/24 09:56 [facility] (Rec: 04/01/24 10:08 [facility] [id number]) OT-Instrumental Activities of Daily Living Deficits IADL Deficits Identified Deficits Home Safety Awareness Awareness of Need for Assistance at Home Good Awareness Ability to Problem Solve Emergency Able to Problem Solve Situations Medication Management Medication Management No Deficits Identified Money Management Money Management No Deficits Identified Meal Preparation Meal Preparation Caregiver Provides Assist Editor At Large Editor At Large Caregiver Provides Assist M6 OT- IP Functional Cognition Start: 04/01/24 09:56 Freq: Status: Active Protocol: Document 04/01/24 09:56 [facility] (Rec: 04/01/24 10:08 [facility] [id number]) Cognitive Factors Limiting Selfcare Function Cognitive Ability Level of Alertness Alert Patient Orientation Name,Age,Birthday,Month,Date, Year,Day of Week,Place, Situation Attention Span Ability Capable of Focused Attention, Capable of Sustained Attention Ability to Follow Commands Able to Follow Multi-Step Commands Cognitive Comments Cognitive Assessment Comments Pt intact. OT- Vision and Hearing OT- Hearing Assessment OT- Hearing Assessment WFL M7 OT- IP Mobility and Balance Start: 04/01/24 09:56 Freq: Status: Active Protocol: Document 04/01/24 09:56 [facility] (Rec: 04/01/24 10:08 [facility] [id number]) OT-Transfer Assessment Sit to and From Stand Sit to and from Stand Standby Assistance Transfers Transfer Ability Standby Assistance Technique Transfer Destination Chair,Toilet Transfer Technique Stand Step Pivot Devices Transfer Assistive Devices None,Front Wheeled Walker Comments Mobility Comments Educated pt on transitions as pt tend to hesitate when coming to stand and vc to just activate her quads util all the way up to stand. In addition to be sure to push on the on the recliner to stand. OT- Balance Assessment Sitting Balance and Reactions Static Sitting Balance Ability Normal Dynamic Sitting Balance Ability Good Standing Balance and Reactions Static Standing Balance Ability Good Dynamic Standing Balance Ability Fair M8 OT- IP Objective Assessments Start: 04/01/24 09:56 Freq: Status: Active Protocol: Document 04/01/24 09:56 [facility] (Rec: 04/01/24 10:08 [facility] [id number]) OT Gross Range of Motion Upper Extremity Range of Motion ROM Impairments WFL for dressing needs. OT Strength Comments Strength Comments WFL for mobility needs. M9 OT- IP Assessment and Plan Start: 04/01/24 09:56 Freq: Status: Active Protocol: Document 04/01/24 09:56 [facility] (Rec: 04/01/24 10:08 [facility] [id number]) OT Summary Assessment and Plan Potential Rehabilitation Potential Excellent Analytic Complexity at Evaluation Low Summary OT Impairments Pain,Balance,Functional Mobility,Dressing,Bathing, Shower Transfers Progress Towards Goals Progressing Toward Goals Assessment Summary Pt low complexity and main barriers are pain, and needing initial educations regarding transition to stand to be sure to activate her quads all the way to standing. Pt's friend who will be standing with her states good understanding to be able to care for her friend . Pt to go home with assist and have outpt PT. Goals Toileting Goal Independent Bathing Goal Independent Toilet Transfer Goal Independent Shower Transfer Goal Independent Days to Meet Goals 5 Frequency of Treatment Frequency Of Treatment Once a Day Treatment Plan OT Treatment Plan ADL Training,Functional Mobility,Patient/Family Education,Discharge Planning Discharge Recommendations OT Discharge Recommendations Home with Assistance, Outpatient PT Transportation Needs at Discharge Private Vehicle
--- NOTE | 2024-04-01 11:39 | PC.NURSE ---
Dayshift: Provided pt and friend discharge education, answered all pt questions. Pt belongings with pt. PIV d/c'ed. PCT Sarah escorted pt to [facility] pharmacy with friend to black pickler meds.
== END 2024-04-01 10:45 | disposition home or self-care (01) ==
LOC: OR 07:18 → AC 07:19
PROVIDERS: Family Provider Family Medicine; PCP Family Medicine; Referring Provider Family Medicine; Visit Provider Orthopaedic Surgery Foot and Ankle Surgery
PROC: 0SRC0JZ Replacement of Right Knee Joint with Synthetic Substitute, Open Approach (ICD-10-PCS; CPT 27447; principal; 2024-03-31 08:45)
DX: M17.11 Unilateral primary osteoarthritis, right knee (principal); I48.91 Unspecified atrial fibrillation; G89.18 Other acute postprocedural pain; Z79.01 Long term (current) use of anticoagulants; Z95.0 Presence of cardiac pacemaker; Z85.3 Personal history of malignant neoplasm of breast
CPT/HCPCS: 27447; 20985; 36415; 64450; 73560; 85014; 85018; 97116; 97162; 97165; 97530; 97535; C1776; C9290; J0171; J0690; J1885; J2405; J2704